=== PATIENT | male | born 1980 | race Caucasian/White ===

== ENCOUNTER 2021-12-13 16:54 | Emergency (ER) | payer OTHER, SELFPAY ==
[2021-12-13 16:56] VITALS: BP 141/85; PULSE 67; RESP 18; TEMP 37; O2SAT 98; BMI 31.5
--- NOTE | 2021-12-13 17:47 | ED.DENTAL ---
HPI - Dental/Oral General Chief complaint: Dental/Oral Stated complaint: mouth infection Time Seen by Provider: 12/13/21 17:31 Source: patient Mode of arrival: ambulatory History of Present Illness HPI Narrative: 41-year-old male on Suboxone presenting to ED s/p 8 dental extractions performed on 12/09 complaining continued oral pain/throbbing. Admits is currently on amoxicillin however believes antibiotic is not working due to increasing pain. States stopped his Suboxone as was given opiates x1 day however without improvement, admits also bought opiates on the street without improvement. Denies fever, chills, oral swelling, difficulty swallowing, drainage from areas Related Data Previous Rx's Medication Instructions Recorded clindamycin HCl 300 mg capsule 600 mg PO TID 7 Days #42 cap 12/13/21 Allergies Allergy/AdvReac Type Severity Reaction Status Date / Time promethazine [From Phenergan] AdvReac Mild AGITATION Verified 12/13/21 16:59 Review of Systems Review of Systems: Constitutional: No Weight loss, No Fever, No Chills ENT/Mouth: +oral pain, No Ear Pain, No Nasal Congestion, No Sinus Pain, No Hoarseness, No sore throat, No Rhinorrhea, No Swallowing Difficulty Cardiovascular: No Chest Pain, No SOB Respiratory: No Cough, No Sputum Gastrointestinal: No Nausea, No Vomiting, No Diarrhea, No Constipation, No Abdominal pain Genitourinary:, No Dysuria, No Urinary Frequency Musculoskeletal: No joint pain, No Myalgias, No Joint Swelling Skin: No Skin Lesions, No rash Neuro: No Weakness, No Numbness Yes all other systems are reviewed and are negative [facility] Past Medical History Attestation statement: The following information was validated with the patient. Medical History No known health problems Social History Social History Advance Directives: No Advance Directives Information Provided: No Physical Exam Vital Signs: Vital Signs: Last Vital Signs Temp 98.6 F 12/13/21 16:56 Pulse 67 12/13/21 16:56 Resp 18 12/13/21 16:56 BP 141/85 H 12/13/21 16:56 Pulse Ox 98 12/13/21 16:56 BMI result Body Mass Index 31.5 Const: General: cooperative, healthy appearing and no acute distress Orientation/consciousness: patient oriented x3 Limitations: no limitations HEENT: Other: All bottom teeth fully extracted with sutures intact. Mild gingival swelling. No erythema, no drainage, no fluctuance or induration. Diffuse tenderness. Head: Yes normal to inspection and Yes atraumatic Ears: hearing grossly normal bilaterally General nose exam: Normal external nose present Face and sinus: Yes normal facial exam Throat: Yes posterior oropharynx normal, Yes tonsils normal, Yes uvula midline, No peritonsillar mass, No uvula laterally displaced and No uvular edema Eyes: General: appearance normal, both eyes and all related structures EOM: EOMs intact bilaterally Neck: Neck: Yes normal visual inspection and Yes no meningeal signs Resp: Effort & Inspection: normal respiratory effort and no respiratory distress Auscultation: clear to auscultation bilaterally Cardio: Rate: regular rate Heart sounds: S1 normal heart sound present and S2 normal heart sound present Skin: Rashes: no rashes Wounds: no wounds Neuro: General: patient oriented x3, tone normal and no meningeal signs Gait exam (Neuro): Normal gait present Extrem: General: Yes normal to inspection MDM - Dental/Oral MDM Narrative Medical decision making narrative: 41-year-old male on Suboxone presenting to ED s/p 8 dental extractions performed on 12/09 complaining continued oral pain/throbbing. On exam vital signs stable, NAD, physical exam as above. Low suspicion for infection at this time. No evidence of abscess. Discussed with patient cannot prescribe opiate medication, recommended he continue his Suboxone. Patient persistent antibiotic needs to be changed trauma will change to clindamycin, and instructed patient to stop amoxicillin a follow-up with his dentist Patient discharged with Narcan to go Medical Records Attestation: I reviewed the patient's medical records. Lab Data Attestation: I reviewed the patient's lab results. Discharge Plan Discharge Clinical Impression: Dental infection Patient Disposition: Home, Self-Care Instructions: Dental Abscess (ED) Additional Instructions: Stop taking previously prescribed amoxicillin, start taking clindamycin You should continue taking Suboxone, do not take opiates Suboxone will help with her pain. In addition take Tylenol and Motrin every 4-6 hours as described on the bottle Your being sent home with intranasal Narcan in case of overdose Please follow-up with your dentist Prescriptions: New clindamycin HCl 300 mg capsule 600 mg PO TID 7 Days Qty: 42 0RF Referrals: Arturo South MD [Primary Care Provider] - 2 days Interventions: ED Discharge Assessment Last Done: 12/13/21 18:04 Discharge Date/Time: 12/13/21 18:07
== END 2021-12-13 18:07 | disposition home or self-care (01) ==
PROVIDERS: Emergency Provider Emergency Medicine Emergency Medical Services; PCP Internal Medicine
DX: K04.7 Periapical abscess without sinus (principal); Z79.891 Long term (current) use of opiate analgesic
CPT/HCPCS: 99283

== ENCOUNTER 2022-01-17 20:02 | Emergency (ER) | payer OTHER, SELFPAY ==
--- NOTE | ~2022-01-17 | XR_ITS ---
EXAMINATION: XR FOOT, LEFT CLINICAL INFORMATION: Heel foreign body. COMPARISON: None TECHNIQUE: AP, lateral, and oblique views of the left foot. FINDINGS: Moderate sized enthesopathic spur is present at the Achilles tendon insertion on the calcaneus. Small enthesopathic spur is present at the plantar fascial origin on the calcaneus. No radiodense foreign bodies are identified. Bone mineralization is normal. No fracture or malalignment. Small type I accessory navicular. Joint spaces are well-preserved. XR/XR foot LT min 3V IMPRESSION: Moderate size enthesopathic spur at the Achilles tendon insertion on the calcaneus and a smaller spur at the plantar fascial origin. No appreciable radiodense foreign bodies. No acute osseous findings.
[2022-01-17 20:09] VITALS: BP 131/86; PULSE 79; RESP 18; TEMP 36.8; O2SAT 96; BMI 30.4
--- NOTE | 2022-01-17 20:33 | ED.GENADULT ---
HPI - General Adult General Chief complaint: General Medical Stated complaint: FB on L heel Source: patient Mode of arrival: ambulatory Limitations: no limitations History of Present Illness HPI narrative: 41-year-old male presents with suspected foreign body to the left heel. Onset (ago): day(s) (4) Location: left and lower extremity Radiation: non-radiation Severity: mild Severity scale (1-10): 3 Quality: stabbing Pain Consistency: intermittent Relieving factors: rest Exacerbating factors: other (Ambulation) Associated symptoms: denies other symptoms Treatments prior to arrival: none Related Data Previous Rx's Medication Instructions Recorded clindamycin HCl 300 mg capsule 600 mg PO TID 7 Days #42 cap 12/13/21 cephalexin 500 mg capsule 500 mg PO Q8H 7 Days #21 cap 01/17/22 levofloxacin 750 mg tablet 750 mg PO Q24H 2 Days #2 tab 01/17/22 Allergies Allergy/AdvReac Type Severity Reaction Status Date / Time promethazine [From Phenergan] AdvReac Mild AGITATION Verified 01/17/22 20:08 Review of Systems Review of Systems: Constitutional: No Fever, No Chills ENT/Mouth: No Ear Pain, No Hoarseness, No sore throat Eyes: No Eye Pain, No Swelling, No Redness, No Foreign Body Cardiovascular: No Chest Pain, No SOB Respiratory: No Cough, No Dyspnea Gastrointestinal: No Nausea, No Vomiting, No Diarrhea, No abdominal Pain Genitourinary: No Dysuria, No Hematuria Musculoskeletal: positive left foot pain, No Myalgias, No Joint Swelling Skin: No Skin lacerations, No rash Neuro: No Weakness, No Numbness, No Paresthesias, No Loss of Consciousness, No Dizziness, No Headache Psych: No Anxiety/Panic, No Depression Heme/Lymph: no easy bruising, no Lymphadenopathy Endocrine: No Polyuria, No Polydipsia Yes all other systems are reviewed and are negative [facility] Past Medical History Attestation statement: The following information was validated with the patient. Source: old records reviewed Medical History No known health problems Social History Social History Advance Directives: No Advance Directives Information Provided: No Physical Exam ED Vital Signs: Vital Signs - 24 hr 01/17/22 20:09 Temperature 98.3 F Pulse Rate 79 Respiratory Rate 18 Blood Pressure 131/86 Pulse Oximetry 96 BMI result Body Mass Index 30.4 Appearance: Alert. Oriented X3. No acute distress. Eyes: Pupils equal, round and reactive to light. ENT: Pharynx normal. Neck: Normal inspection. Neck supple. CVS: Normal heart rate and rhythm. Pulses normal. Respiratory: No respiratory distress. Breath sounds normal. Abdomen: Soft and nontender. Skin: Puncture wound noted to left lateral calcaneus, Skin warm and dry. Normal skin color. Normal skin turgor. Extremities: No lower extremity edema. Gait well-balanced well coordinated. Neuro: No motor deficit. No sensory deficit. Cranial nerves 2-12 intact. Course Course Course Narrative: 41-year-old male presents with a suspected foreign body in his left heel. Does not report any fevers or chills, does not any indication of infection or phlebitis. Does have a singular puncture wound with purulent drainage to the left lateral calcaneus. Will order x-rays. X-rays negative for radiopaque foreign bodies. Prepped and draped in sterile fashion. Betadine cleanse. Anesthetic injected with lidocaine with epinephrine. Incised with an 11 blade, 0.5 cm incision made. Site irrigated and explored. Small pieces of what appears to be wood removed from the site. Will treat with Keflex and Levaquin. Patient verbalized understanding of and agrees to plan of care to discharge home. Verbalized understanding of signs and symptoms indicating need for emergent intervention Medical Decision Making Differential Diagnosis Differential Diagnosis: Foreign body Medical Records Medical records reviewed: Yes I reviewed the patient's medical records. Imaging Data Foot x-ray: Attestation: I personally reviewed and interpreted this imaging study as follows: Radiologist's impression: EXAMINATION: XR FOOT, LEFT CLINICAL INFORMATION: Heel foreign body.? COMPARISON: None? TECHNIQUE: AP, lateral, and oblique views of the left foot. FINDINGS: Moderate sized enthesopathic spur is present at the Achilles tendon insertion on the calcaneus.? Small enthesopathic spur is present at the plantar fascial origin on the calcaneus. No radiodense foreign bodies are identified. Bone mineralization is normal. No fracture or malalignment. Small type I accessory navicular. Joint spaces are well-preserved. XR/XR foot LT min 3V IMPRESSION: Moderate size enthesopathic spur at the Achilles tendon insertion on the calcaneus and a smaller spur at the plantar fascial origin. No appreciable radiodense foreign bodies. No acute osseous findings. Discharge Plan Discharge Clinical Impression: Infected puncture wound of plantar aspect of foot Patient Disposition: Home, Self-Care Instructions: Puncture Wound in the Foot (ED) Additional Instructions: You were evaluated for a suspected foreign body to the left plantar surface of your foot. We did explore the site with an incision and irrigation. I did remove small pieces of an unknown substance. Please take Levaquin 750 mg daily Start this medication tomorrow for the next 2 days. We get your 1st dose in the emergency department. Take Keflex 500 mg every 8 hours for the next 5 days Follow-up with podiatry. I referred you to Dr. Yang. Please call and request an appointment. Thank you for choosing this emergency department for evaluation. Please follow-up with primary care physician as needed. Return to the emergency department for any new, concerning, or worsening symptoms. Prescriptions: New levofloxacin 750 mg tablet 750 mg PO Q24H 2 Days Qty: 2 0RF Rx Instructions: Start on 01/18/2022 cephalexin 500 mg capsule 500 mg PO Q8H 7 Days Qty: 21 0RF No Action clindamycin HCl 300 mg capsule 600 mg PO TID 7 Days Qty: 42 0RF Referrals: Rayshawn Yang [Physician] - (Foreign body plantar surface) Interventions: ED Discharge Assessment Last Done: 01/17/22 22:32 Discharge Date/Time: 01/17/22 22:34
[2022-01-17] MEDS: Lidocaine HCl 1%/Epi 1:100,000 20 ML VIAL SUBCUT (21:39)
[2022-01-17] MEDS: cephALEXin 500 MG CAPSULE PO (22:27)
[2022-01-17] MEDS: levoFLOXacin 750 MG TABLET PO (22:27)
== END 2022-01-17 22:34 | disposition home or self-care (01) ==
PROVIDERS: Emergency Provider Emergency Medicine; PCP Internal Medicine
DX: S91.332A Puncture wound without foreign body, left foot, initial encounter (principal); Y28.9XXA Contact with unspecified sharp object, undetermined intent, initial encounter; Y93.9 Activity, unspecified; Y92.9 Unspecified place or not applicable; Y99.9 Unspecified external cause status; Z79.899 Other long term (current) drug therapy
CPT/HCPCS: 73630; 99284

== ENCOUNTER → 2022-09-14 11:19 | Outpatient (BNVA) | payer OTHER, SELFPAY | PROVIDERS: PCP Internal Medicine; Visit Provider Urology | DX: N41.9 Inflammatory disease of prostate, unspecified (principal); R39.15 Urgency of urination; R35.1 Nocturia | CPT/HCPCS: 51798; 99202 ==

== ENCOUNTER 2022-10-13 14:14 | Outpatient (REF) | payer OTHER, SELFPAY ==
[2022-10-13 18:38] LABS: PSA,Total (Free>4and<10) 0.45 ng/mL (0.00-4.00)
== END 2022-10-13 14:15 | disposition home or self-care (01) ==
LOC: HO.LAB 14:14
PROVIDERS: PCP Internal Medicine; Visit Provider Urology
DX: N41.9 Inflammatory disease of prostate, unspecified (principal); R35.1 Nocturia; R39.15 Urgency of urination
CPT/HCPCS: 36415; 84153

== ENCOUNTER → 2022-10-30 12:56 | Outpatient (BNVA) | payer OTHER, SELFPAY | PROVIDERS: PCP Internal Medicine; Visit Provider Urology | DX: N41.9 Inflammatory disease of prostate, unspecified (principal); R39.15 Urgency of urination; R35.1 Nocturia | CPT/HCPCS: 51798; 99212 ==

== ENCOUNTER 2022-12-22 06:49 | Day surgery (SDC) | payer OTHER, SELFPAY ==
--- NOTE | 2022-12-21 10:20 | HO.ANESPROP2 ---
Documented by User: Daisha Valadez NP 12/21/22 10:20 HPI - Anesthesia Eval Consult details Narrative: 42yo M for Cystoscopy Hydrodistention of Bladder w/possible biopsy Suboxone daily PMFSH Active Problems Active Problems: All Active Problems (Updated 12/17/22 @ 15:44 by Imelda Joseph, MIGUEL) Prostatitis (Acute) Urgency of micturition (Acute) Nocturia (Acute) Past Medical History Medical History (Updated 12/22/22 @ 08:57 by Joanna Langley MD) BPH (benign prostatic hyperplasia) History of kidney stones Hypogonadism in male Mild asthma Surgical History Surgical History History of lung biopsy Social History Social History (Updated 12/22/22 @ 08:57 by Joanna Langley MD) Patient Tobacco Use Status: Current everyday Tobacco user Tobacco use type: Cigarette Cigarettes Per Day: 15 Meds Allergies Allergy/AdvReac Type Severity Reaction Status Date / Time promethazine [From Phenergan] AdvReac Agitated Verified 12/22/22 07:49 Home Medications Medication Instructions Recorded Confirmed Last Taken Type buprenorphine 8 mg-naloxone 2 mg 10 mg sublingual BID 09/14/22 12/17/22 Unknown History sublingual film (Suboxone) naproxen 250 mg tablet 250 mg PO BID PRN Pain 12/22/22 12/22/22 12/15/22 History omega 8-qgj-arm-fish oil 1,000 mg 1,000 cap PO DAILY 12/22/22 12/22/22 12/15/22 History (120 mg-180 mg) capsule (Fish Oil) Exam Exam Date and Time: December 21, 2022 1020 Assessment and Plan Assessment Anesthesia Assessment: Chart Reviewed Documented by User: Joanna Langley MD 12/22/22 09:44 PMFSH Active Problems Active Problems: All Active Problems (Updated 12/17/22 @ 08:42 by Joanna Langley MD) Prostatitis (Acute) Urgency of micturition (Acute) Nocturia (Acute) On suboxone. Last dose yesterday evening 12/21/22. Denies any drug use Asthma Smoker Past Medical History Medical History (Updated 12/22/22 @ 08:57 by Joanna Langley MD) BPH (benign prostatic hyperplasia) History of kidney stones Hypogonadism in male Mild asthma Family History Family history of problems with anesthesia: No Surgical History Surgical History History of lung biopsy History of Problems with Anesthesia: No Social History Social History (Updated 12/22/22 @ 08:57 by Joanna Langley MD) Patient Tobacco Use Status: Current everyday Tobacco user Tobacco use type: Cigarette Cigarettes Per Day: 15 Meds Allergies Allergy/AdvReac Type Severity Reaction Status Date / Time promethazine [From Phenergan] AdvReac Agitated Verified 12/22/22 07:49 Home Medications Medication Instructions Recorded Confirmed Last Taken Type buprenorphine 8 mg-naloxone 2 mg 10 mg sublingual BID 09/14/22 12/17/22 Unknown History sublingual film (Suboxone) naproxen 250 mg tablet 250 mg PO BID PRN Pain 12/22/22 12/22/22 12/15/22 History omega 1-njc-ujn-fish oil 1,000 mg 1,000 cap PO DAILY 12/22/22 12/22/22 12/15/22 History (120 mg-180 mg) capsule (Fish Oil) Exam Height,Weight and Vital Signs: Height 5 ft 6 in Weight 97.522 kg Vital Signs Temp Pulse Resp BP Pulse Ox O2 Del Method 12/22/22 08:46 57 15 12/22/22 07:13 97.4 F 62 20 118/80 95 Room Air Airway Mallampati Class: II TM Dist: >3cm Neck ROM: Full Loose/Missing/Broken Teeth: Yes (Edentulous. Dental post bottom front) Heart: RRR Lungs: Wheezes R>L. Still occasional wheeze Right post respiratory treatment Assessment and Plan Assessment Anesthesia Assessment: Anesthesia Plan Discussed Final Anesthetic Review Family History of Problems with Anesthesia: No History of Problems with Anesthesia: No NPO: Yes ASA Class: II Final Preanesthetic Review: No Changes in Pt Med Stat, Meds/Allgs Chart Reviewed, Consent Obtained/Reviewed and Anes Risks/Benef Reviewed Patient Risk: Intermediate Procedure Risk: Low Assessment/Block/Sedation in SS: Assess/Block/Sedation-SS Anesthetic Plan Anesthetic Plan: GA Disposition: Standard PACU
[2022-12-22] VITALS (7 sets, daily range): BP systolic 113–133; BP diastolic 70–81; PULSE 57–89; RESP 14–20; TEMP 36.3–36.6; O2SAT 95–100; BMI 34.7
[2022-12-22] MEDS: Lactated Ringers 1,000 ML 100 ML IVCONT (07:48)
--- NOTE | 2022-12-22 08:30 | MHC.SHP ---
Pre-Procedural Eval Section A Date of Service: 12/22/22 The History & Physical has been completed within 30 days and I have reviewed it.: Yes Section B Chief Complaint: Urgency of urination, Nocturia Allergies: Allergies Allergy/AdvReac Type Severity Reaction Status Date / Time promethazine [From Phenergan] AdvReac Agitated Verified 12/22/22 07:49 Plan Diagnosis/Plan: Unchanged I have reviewed the history and physical and performed a pertinent physical examination on my patient. No changes have occurred unless specified. Cystoscopy. possible bladder biopsy. Discussed risks to include but not limited to, blood in the urine, burning with urination, urgency. Time Spent With Patient Time: Total time managing care of this patient today ____ minutes.
[2022-12-22] MEDS: Albuterol Sulfate (0.083%) 2.5 MG/3 ML VIAL.NEB INHALE (08:43)
--- NOTE | 2022-12-22 08:59 | MHC.SHP ---
Pre-Procedural Eval Section A Date of Service: 12/22/22 The patient is an INPATIENT: No The History & Physical has been completed within 30 days and I have reviewed it.: No Section B Chief Complaint: Urgency of urination, Nocturia Details of Present Illness: Jorge Luis is here for further evaluation for complaints of urinary urgency every hour during the day and nocturia 2-3 x. PCP - Arturo South MD. He states the symptoms have been bothersome for several months He states he was using an OTC supplement that had Sawpalmetto that seemed to help Denies dysuria, Denies hematuria. Review of chart was treated for low testosterone in the past, PSA - 06/10/2018--1.83 ng/mL --in discussion the patient states when he was changed from methadone to subloxone, the testosterone level improved. States he is sexually active, no issues with erections Treated in the Aug, 2022 with bactrim empirically for prostatitis and started on flomax daily He states that he still has symptoms of urgency and bladder pressure. Plan: I have discussed further evaluation with cystoscopy hydrodistention. Possible bladder biopsy. Relevant Family History (Specify if Yes): No Relevant Social History: Tobacco Use Allergies: Allergies Allergy/AdvReac Type Severity Reaction Status Date / Time promethazine [From Phenergan] AdvReac Agitated Verified 12/22/22 07:49 Review of Systems Review of Systems Comment: ROS negative other than stated in HPI Exam Surgical H&P Exam: Normal: HEENT, Normal: Heart, Normal: Lungs, Normal: Abdomen and Normal: Neurological and Significant Findings: Skin (hydraadenitis underarm, right) Plan Diagnosis/Plan: Unchanged I have reviewed the history and physical and performed a pertinent physical examination on my patient. No changes have occurred unless specified. Cystoscopy hydrodistention. Possible bladder biopsy. Discussed risks to include but not limited to, blood in the urine, burning with urination, urgency. Time Spent With Patient Time: Total time managing care of this patient today ____ minutes.
--- NOTE | 2022-12-22 10:01 | W.PM.OPN ---
Operative Note Operative Note Date of Service: 12/22/22 Narrative: PREOP DIAGNOSIS: Dysuria POSTOP DIAGNOSIS: Interstitial cystitis PROCEDURE: CYSTOSCOPY HYDRODISTENTION Anethesia: General Surgeon: Dr. Denis Morgan Indications: Pt with complaints of persistent, urgency and dysuria for further evaluation of the bladder. Details of procedure: The patient was brought into the operating room placed on the OR table in supine position. 2 g of Ancef IV. General anesthesia was administered. The patient was repositioned into lithotomy position, prepped and draped in the usual sterile fashion. Time-out was done per protocol. A 22 fr cystoscope was placed transurethrally into the bladder. The bulbous urethra was within normal limits. The prostatic urethra was nonobstructive. The right and left ureteral orifices were visualized. The entire bladder was visualized. There were no suspicious bladder lesions seen. There were mild trabeculations noted. The bladder was filled with sterile water at 80 cm of water pressure under gravity. The bladder was distended for 2 minutes. Bladder capacity measured 525 mL. Revisualization of the bladder, noted mild glomerulations on several quadrants of the bladder. No Yaniv ulcerations. The bladder was refilled with sterile water again at 80 cm of water pressure under gravity. The bladder was distended for 3 minutes. The fluid was drained from the bladder and measured 625 mL. The cystoscope was removed. 2% lidocaine urojet was passed transurethrally, Solution of (1% lidocaine plain, 15 mL, 0.5 % Marcaine 15 mL mixed with 30, 000 units of heparin concentration 5000 units per mL total of 6 mL hepaine) instilled transurethrally into the bladder. 2% lidocaine jelly 10 mL was passed transurethrally. A prostatic massage was performed. The patient was brought out of anesthesia and taken to recovery in stable condition. Complications: None Drains: none
== END 2022-12-22 10:48 ==
LOC: HO.SSS 06:49
PROVIDERS: PCP Internal Medicine; Visit Provider Urology
PROC: 0T7B7ZZ Dilation of Bladder, Via Natural or Artificial Opening (ICD-10-PCS; CPT 52260; principal; 2022-12-22 08:20)
DX: N30.10 Interstitial cystitis (chronic) without hematuria (principal); R39.15 Urgency of urination; N32.89 Other specified disorders of bladder; N40.0 Benign prostatic hyperplasia without lower urinary tract symptoms; R97.20 Elevated prostate specific antigen [PSA]; R35.1 Nocturia; N41.9 Inflammatory disease of prostate, unspecified; N52.9 Male erectile dysfunction, unspecified; E29.1 Testicular hypofunction; J45.909 Unspecified asthma, uncomplicated; Z79.899 Other long term (current) drug therapy; F11.20 Opioid dependence, uncomplicated; Z88.8 Allergy status to other drugs, medicaments and biological substances; Z87.442 Personal history of urinary calculi; F17.210 Nicotine dependence, cigarettes, uncomplicated
CPT/HCPCS: 52260; 94640; J0690; J1100; J1643; J1885; J1956; J2250; J2405; J2795; J3010